=== PATIENT | female | born 1990 | race African-American/Black ===

== ENCOUNTER 2016-11-11 01:39 | Emergency (ER) | payer BC, OTHER ==
[~2016-11-11] VITALS: Ht 167.6 cm; Wt 91.0 kg
[2016-11-11] MEDS ORDERED: METH250T11 PO (02:06)
[2016-11-11] MEDS ORDERED: ONDANSETRON 4MG ODT PO STA (02:59)
[2016-11-11] MEDS ORDERED: KETOROLAC 60MG/2ML VIAL IM STA (02:59)
[2016-11-11 03:02] LABS: CLARITY URINE CLEAR (CLEAR); COLOR URINE YELLOW (YELLOW); GLUCOSE URINE NEGATIVE (NEGATIVE); KETONES URINE NEGATIVE (NEGATIVE); LEUKOCYTE ESTERASE URINE NEGATIVE (NEGATIVE); NITRITE URINE NEGATIVE (NEGATIVE); OCCULT BLOOD URINE 2+ (NEGATIVE); PROTEIN URINE NEGATIVE (NEGATIVE); UROBILINOGEN URINE 0.2 E.U./dL (0.2-1.0)
[2016-11-11 03:10] VITALS: BP 151/113
[2016-11-11 03:15] LABS: BASOPHILS % 0.9 % (0.0-2.0); DIFFERENTIAL COMMENT 0; EOSINOPHILS % 2.7 % (0.0-5.0); HEMATOCRIT. 33.6 % (36.0-48.0); HEMOGLOBIN. 10.5 g/dL (12.0-16.0); LYMPHOCYTES % 34.8 % (20.0-50.0); MEAN CORPUSCULAR HEMOGLOBIN 23.3 pg (28.0-32.0); MEAN CORPUSCULAR HGB CONC 31.3 g/dL (31.0-37.0); MEAN CORPUSCULAR VOLUME 74.6 fL (81.0-99.0); MEAN PLATELET VOLUME 7.7 fl (7.4-10.4); MONOCYTES % 8.7 % (2.0-8.0); NEUTROPHILS % 52.9 % (40.0-76.0); PLATELET 333 x1000/uL (130-400); RED BLOOD CELL COUNT 4.51 mill/uL (4.2-5.4); RED CELL DISTRIBUTION WIDTH 16.7 % (11.6-14.6); WHITE BLOOD COUNT 8.1 x1000/uL (4.5-11.0)
[2016-11-11 03:18] LABS: BACTERIA URINE TRACE; RBC URINE 0-2 /hpf (0-2); SQUAMOUS EPITHELIAL CELL URINE RARE /lpf (RARE/1+); WBC URINE 0-2 /hpf (0-2)
[2016-11-11 03:19] LABS: HCG SCREEN NEGATIVE
[2016-11-11 03:21] LABS: ADD RBC MORPHOLOGY YES; PARTIAL THROMBOPLASTIN TIME 27.8 sec (24.0-34.0); PROTHROMBIN TIME 10.3 sec
[2016-11-11 03:22] LABS: HYPOCHROMASIA 1+; PLATELET ESTIMATE NORMAL
[2016-11-11 03:28] LABS: ALANINE AMINOTRANSFERASE 22 IU/L (13-61); ALBUMIN 3.6 g/dL (3.4-5.0); ANION GAP 11; CALCIUM 8.2 mg/dL (8.5-10.1); CARBON DIOXIDE 27 mEq/L (21-32); CHLORIDE 107 mEq/L (98-107); ETHANOL BLOOD < 10 mg/dL; INDEX HEMOLYSI 1 (1-3); INDEX ICTERIC 1 (1-4); INDEX LIPEMIC 1 (1-3); LIPASE 110 IU/L (73-393); UREA NITROGEN BLOOD 10 mg/dL (7-21); eGFR > 60 mL/min (>60)
[2016-11-11 03:38] LABS: *BARBITURATES SCREEN URINE NEGATIVE (NEGATIVE); *BENZODIAZEPINES SCREEN URINE NEGATIVE (NEGATIVE); *COCAINE SCREEN URINE NEGATIVE (NEGATIVE); CANNABINOID URINE SCREEN NEGATIVE (NEGATIVE); ECSTASY MDMA SCREEN URINE NEGATIVE (NEGATIVE); METHADONE URINE SCREEN NEGATIVE (NEGATIVE); PHENCYCLIDINE URINE SCREEN NEGATIVE (NEGATIVE)
[2016-11-11 03:50] LABS: *AMPHETAMINES SCREEN URINE PRESUMTIVE POSITIVE (NEGATIVE); OPIATES URINE SCREEN PRESUMTIVE POSITIVE (NEGATIVE)
[2016-11-11 05:04] LABS: *AMPHETAMINES SCREEN URINE NEGATIVE (NEGATIVE); *BARBITURATES SCREEN URINE NEGATIVE (NEGATIVE); *BENZODIAZEPINES SCREEN URINE NEGATIVE (NEGATIVE); *COCAINE SCREEN URINE NEGATIVE (NEGATIVE); CANNABINOID URINE SCREEN NEGATIVE (NEGATIVE); ECSTASY MDMA SCREEN URINE NEGATIVE (NEGATIVE); METHADONE URINE SCREEN NEGATIVE (NEGATIVE); PHENCYCLIDINE URINE SCREEN NEGATIVE (NEGATIVE)
[2016-11-11 05:20] LABS: OPIATES URINE SCREEN PRESUMTIVE POSITIVE (NEGATIVE)
== END 2016-11-11 05:20 | disposition home or self-care (01) ==
LOC: ER 01:39
DX: R10.31 Right lower quadrant pain (principal); D50.9 Iron deficiency anemia, unspecified; I10 Essential (primary) hypertension; M54.5 Low back pain; E66.9 Obesity, unspecified; Z68.32 Body mass index [BMI] 32.0-32.9, adult; Z98.890 Other specified postprocedural states
CPT/HCPCS: 36415; 74176; 76856; 80053; 80305; 81001; 83690; 84703; 85025; 85610; 85730; 96372; 99285; G0482; J1885; Q0162